=== PATIENT | female | born 1975 | race Caucasian/White ===

== ENCOUNTER → 2017-10-01 13:44 | Outpatient (CLI) | payer OTHER ==
[2014-07-30 16:39] VITALS: BMI 44.5
[~2017-10-01 13:44] MED LIST: LAMICTAL150 MG PO; LEVAQUIN750 MG PO; PROTONIX40 MG PO; XOPENEX 1.1.25 MG/3 UPD; ZESTORETIC 10/11 TAB PO
== END | disposition home or self-care (01) ==
LOC: D.MRI 13:44
DX: G40.909 Epilepsy, unspecified, not intractable, without status epilepticus (principal)

== ENCOUNTER → 2018-04-20 16:35 | Outpatient (CLI) | payer OTHER ==
[2014-07-30 16:39] VITALS: BMI 44.5
== END | disposition home or self-care (01) ==
LOC: D.MAMMO 03-30 08:00
DX: Z12.31 Encounter for screening mammogram for malignant neoplasm of breast (principal)

== ENCOUNTER 2019-07-04 07:41 | Day surgery (SDC) | payer OTHER ==
[~2019-07-04] VITALS: Ht 167.6 cm; Wt 119.5 kg
[~2019-07-04 07:41] MED LIST changes: +RANITIDINE HCL150 M1 PO; +TRAZODONE HCL150 MG PO
[2019-07-04 08:06] LABS: HEMATOCRIT 42.6 % (36.0-48.0); HEMOGLOBIN 13.4 g/dL (12-16); MCH 30.8 pg (26.0-34.0); MCHC 31.5 g/dL (31.0-37.0); MCV 97.9 fL (80.0-100.0); MEAN PLATELET VOLUME 9.3 fL (7.4-10.4); RBC 4.35 10x6/uL (4.00-5.40); RDW 13.3 % (11.5-14.5); WBC 7.2 10x3/uL (4.8-10.8)
[2019-07-04 08:14] LABS: CALC OSMOLALITY 275 mosm/kg (275-300); CALCIUM 9.4 mg/dL (8.5-10.1); CARBON DIOXIDE 29.5 mmol/L (21.0-32.0); CHLORIDE - SERUM 98 mmol/L (98-107); CREATININE - SERUM 0.8 mg/dL (0.6-1.3); GLUCOSE 110 mg/dL (74-106); POTASSIUM - SERUM 3.8 mmol/L (3.5-5.1); SODIUM 137 mmol/L (136-145); UREA NITROGEN 15 mg/dL (7-18); eGFR NON AFRICAN AMERICAN 82 mL/min (90-120)
[2019-07-04 08:24] LABS: HCG SERUM NEGATIVE (NEGATIVE)
[2019-07-04 08:41] VITALS: BP 153/98; Ht 167.6 cm; Wt 119.5 kg
[2019-07-04] MEDS ORDERED: HYDROCODON-ACE1 EA10 PO (11:41)
--- NOTE | 2019-07-04 12:22 | NUR ---
DISCHARGE INSTRUCTIONS PROVIDED, IV DC'D WITH TIP INTACT.
--- NOTE | 2019-07-05 16:24 | OP ---
PATIENT NAME: JOEY BRAVO MEDICAL RECORD: [id number] LOCATION:[facility] ADMISSION DATE: SURGEON: RIP LEON MD DATE OF OPERATION: 07/04/2019 PREOPERATIVE DIAGNOSIS: Chronic nonunion of a Goldsmith fracture, right fifth metatarsal. POSTOPERATIVE DIAGNOSIS: Chronic nonunion of a Goldsmith fracture, right fifth metatarsal. PROCEDURE: Open reduction internal fixation of right fifth metatarsal fracture. SURGEON: Rip Leon MD CROP PULLER: SEB Lagunas INTRAOPERATIVE COMPLICATIONS: None. SUMMARY OF PATHOLOGIC FINDINGS: Consistent with the preoperative radiographs, the patient continued to have a non-healed component at the Goldsmith fracture site. OPERATIVE SUMMARY IN DETAIL: After obtaining the appropriate preoperative orthopedic surgery consent as well as anesthetic consultation, evaluation and clearance, the patient was brought to the operating room and placed on the operating table in a supine position. After adequate general laryngeal mask airway was administered, the patient's right lower extremity was prepped and draped in routine sterile fashion. After the appropriate timeout was taken and agreed upon by all given the patient unique identifiers, guide pin was placed from the base of the fifth metatarsal down the shaft of the fifth metatarsal under fluoroscopic guidance on AP and lateral planes. At this point, 55 mm 4.0 Fixos compression screw was utilized thusly closing the fracture gap. The small incision made for this was irrigated and closed with Prolene. Sterile dressings were applied. The patient was placed in an L&U splint and taken to recovery room in stable condition. All final needle and sponge counts were correct. TRANSINT:[id number] Voice Confirmation ID: [id number] DOCUMENT ID: [id number] RIP LEON MD at 1624 CC: [id number] DICTATION DATE: 07/05/19 1253 [employer] [employer]: 07/05/[address] [facility] 07/04/19 [place] [id number] [place] [id number]
== END 2019-07-04 12:25 | disposition home or self-care (01) ==
LOC: D.PAN → D.OPS 12:15 → D.PAN 12:15
PROVIDERS: Anesthesiology; ATTEND Orthopaedic Surgery
DX: S92.354G Nondisplaced fracture of fifth metatarsal bone, right foot, subsequent encounter for fracture with delayed healing (principal); I10 Essential (primary) hypertension; M79.671 Pain in right foot